=== PATIENT | female | born 1995 | race Two or more races ===

== ENCOUNTER 2018-01-17 02:26 | Emergency (ER) | payer OTHER ==
[2018-01-17 02:28] VITALS: BP 128/87
--- NOTE | 2018-01-17 02:32 | EDPHY ---
H & P Stated Complaint: Med clear, L arm lac Time Seen by Provider: 01/17/18 02:29 HPI/ROS: Chief Complaint: Medical clearance, attempted hanging HPI: 22-year-old woman who was in the [facility] tonight and attempted to hang herself by wrapping a pair of pants around her throat, tie them to a bed and then slid away from the bed to tighten knit. Patient states that she did not lose consciousness. She was awake and alert when guards found her. Guards cut the pants off. They brought her in for medical clearance. She is currently without complaint. No neck pain. No difficulty swallowing. No throat pain. No cough. ROS: 10 point Review of Systems is negative except as noted in the HPI. PMH: Denies Social History: No smoking, no alcohol, no recreational drug use Family History: non-contributory Physical Exam: Gen: Awake, Alert, No Distress HEENT: Nose: no rhinorrhea Eyes: PERRLA, EOMI, no petechia Mouth: Moist mucosa Neck: Supple, no JVD, no contusions, no ecchymosis, no bruits, no stridor Chest: nontender, lungs clear to auscultation Heart: S1, S2 normal, no murmur Abd: Soft, non-tender, no guarding Back: no CVA tenderness, no midline tenderness Ext: no edema, non-tender Skin: no rash Neuro: CN II-XII intact, Sensation grossly intact, Strength 5/5 in bilateral upper and lower extremities - Personal History LMP (Females 10-55): Irregular Current Tetanus Diphtheria and Acellular Pertussis (TDAP): Unsure Tetanus Vaccine Date: unsure - Medical/Surgical History Hx Asthma: No Hx Chronic Respiratory Disease: No Hx Diabetes: No Hx Cardiac Disease: No Hx Renal Disease: No Hx Cirrhosis: No Hx Alcoholism: No Hx HIV/AIDS: No Hx Splenectomy or Spleen Trauma: No Other PMH: pylonephritis 2015, UTI's, Anxiety - Social History Smoking Status: Current every day smoker Constitutional: Initial Vital Signs Temperature (C) 36.7 C 01/17/18 02:27 Heart Rate 83 01/17/18 02:27 Respiratory Rate 19 01/17/18 02:27 Blood Pressure 128/87 H 01/17/18 02:27 O2 Sat (%) 97 01/17/18 02:27 O2 Delivery Mode Room Air Allergies/Adverse Reactions: Penicillins Allergy (Verified 01/17/18 02:27) Home Medications: Medication Instructions Recorded Fluconazole [Diflucan] 200 mg PO ONCE #2 tablet 02/20/16 metroNIDAZOLE [Flagyl 750 mg ER] 750 mg PO DAILY #7 tablet.sa 02/20/16 Medical Decision Making ED Course/Re-evaluation: Patient brought in for medical clearance after attempted strangulation. She has no ecchymosis or complaints. She had no loss of consciousness. Her neck is nontender. There is no bruits or stridor. No obvious injuries at this time. She is medically clear for [facility]. Departure - Departure Disposition: Home, Routine, Self-Care Clinical Impression: Suicide attempt by hanging Condition: Good Instructions: Normal Exam (ED) Additional Instructions: Return to the emergency department for difficulty breathing, increasing throat pain or swelling, lightheadedness, fainting, or any other concerns. MEDICALLY CLEAR FOR HALF-WAY Referrals: NONE *PRIMARY CARE P,. [Primary Care Provider] - As per Instructions
== END 2018-01-17 02:45 | disposition home or self-care (01) ==
DX: T71.9XXA Asphyxiation due to unspecified cause, initial encounter (principal); F17.200 Nicotine dependence, unspecified, uncomplicated